=== PATIENT | female | born 1935 | race Caucasian/White ===

== ENCOUNTER 2016-09-15 13:21 | Inpatient (IN) | payer MEDICARE, MEDICAID ==
[~2016-09-15] VITALS: Ht 170.2 cm; Wt 61.2 kg
[2016-09-15 13:13] VITALS: BP 128/68
[~2016-09-15 13:21] MED LIST: ACTOS15 MG ORAL; HYZAAR 50-12.51 EACH ORAL
[2016-09-15 14:02] LABS: BASOPHILS % (AUTO) 0.4 % (0.0-2.0); EOSINOPHILS % (AUTO) 0.1 % (0.0-3.0); LYMPHOCYTES % (AUTO) 7.1 % (20.0-45.0); MEAN CORPUSCULAR HEMOGLOBIN 31.2 PG (27.0-31.0); MEAN CORPUSCULAR HGB CONC 33.7 G/DL (32.0-36.0); MEAN CORPUSCULAR VOLUME 92 FL (80-99); MEAN PLATELET VOLUME 5.1 FL (6.5-10.1); MONOCYTES % (AUTO) 7.9 % (1.0-10.0); NEUTROPHILS % (AUTO) 84.5 % (45.0-75.0); PLATELET COUNT 207 K/UL (150-450); RED BLOOD COUNT 4.33 M/UL (4.20-5.40); RED CELL DISTRIBUTION WIDTH 11.8 % (11.6-14.8); WHITE BLOOD COUNT 12.7 K/UL (4.8-10.8)
--- NOTE | 2016-09-15 14:16 | Emergency Room Report ---
History of Present Illness General Chief Complaint: Syncope Source: EMS (TERRANCE BOYKIN M.D.) Present Illness HPI 81-year-old female presents ED complaining of dizziness. States that she was at lunch today she started to feel dizzy and weak. Nearly passed out. Per EMS BP was low. Patient given IV fluids and BP improved upon arrival. At this time patient states she is feeling somewhat better. Denies any headaches, chest pain or shortness of breath. Denies any fevers or chills. Denies nausea or vomiting. No other aggravating or relieving factors. Denies any other associated symptoms (TERRANCE BOYKIN M.D.) Allergies: Coded Allergies: TETRACYCLINE (Unverified Allergy, Unknown, 09/15/16) Patient History Past Medical History: DM, HTN Past Surgical History: none Pertinent Family History: none Social History: Denies: alcohol use, drug use, smoking Now: No Immunizations: UTD Reviewed Nursing Documentation: PMH: Agreed, PSxH: Agreed (TERRANCE BOYKIN M.D.) Nursing Documentation-PMH Past Medical History: No History, Except For Hx Hypertension: Yes Hx Diabetes: Yes (TERRANCE BOYKIN M.D.) Review of Systems All Other Systems: negative except mentioned in HPI (TERRANCE BOYIKN M.D.) Physical Exam Vital Signs Date Time Temp Pulse Resp B/P Pulse Ox O2 Delivery O2 Flow Rate FiO2 09/15/16 13:03 70 20 128/68 100 Room Air Sp02 EP Interpretation: reviewed, normal General Appearance: no apparent distress, alert, GCS 15, non-toxic Head: normocephalic, atraumatic Eyes: bilateral eye PERRL, bilateral eye normal inspection ENT: hearing grossly normal, normal pharynx, no angioedema, normal voice Neck: full range of motion, supple/symm/no masses Respiratory: chest non-tender, lungs clear, normal breath sounds, speaking full sentences Cardiovascular #1: regular rate, rhythm, no edema Cardiovascular #2: 2+ carotid (R), 2+ carotid (L), 2+ radial (R), 2+ radial (L) , 2+ dorsalis pedis (R), 2+ dorsalis pedis (L) Gastrointestinal: normal bowel sounds, non tender, soft, non-distended, no guarding, no rebound Rectal: deferred Genitourinary: normal inspection, no CVA tenderness Musculoskeletal: back normal, gait/station normal, normal range of motion, non- tender Neurologic: alert, oriented x3, responsive, motor strength/tone normal, sensory intact, speech normal Psychiatric: judgement/insight normal, memory normal, mood/affect normal, no suicidal/homicidal ideation Reflexes: 3+ bicep (R), 3+ bicep (L), 3+ tricep (R), 3+ tricep (L), 3+ knee (R) , 3+ knee (L) Skin: normal color, no rash, warm/dry, well hydrated Lymphatic: no adenopathy (TERRANCE BOYKIN M.D.) Medical Decision Making Medicare Attestation I Ronaldo Oseguera MD hereby attest that the medical record entry for date of service, 07/26/16 accurately reflects signatures/notations that I made in my capacity as MD when I treated/diagnosed the above listed Medicare beneficiary. I attest that this information is true, accurate and complete to the best of my knowledge. I understand that any falsification, omission, or concealment of material fact may subject me to administrative, civil, or criminal liability. This patient warrants hospital admission for extreme of age and has a condition that cannot be treated as outpatient. (RONALDO OSEGUERA M.D.) Diagnostic Impression: Primary Impression: Syncope Qualified Codes: R55 - Syncope and collapse Additional Impression: Pneumonia Qualified Codes: J18.9 - Pneumonia, unspecified organism ER Course Received signout from Dr Boykin at 2pm for this 81 yof with suspected syncope Patient endorses passing out while feeling dizzy at home eating lunch with friend Atraumatic Denies precipitating chest pain, SOB, palpitations History of HTN, ?DM, thyroid CXR with possible LLL PNA Leuks 12k Feels a little "short of breath," breathing thru pursed lips Lungs CTAB on serial exam Will tx empirically for cef/azithro Endorsed to Dr Mariscal at 331pm for tele admission (RONALDO OSEGUERA M.D.) EKG Diagnostic Results Rate: normal Rhythm: NSR ST Segments: no acute changes ASA given to the pt in ED: No (TERRANCE BOYKIN M.D.) Rate: normal, other - arrythmia Rhythm: NSR ST Segments: no acute changes (RONALDO OSEGUERA M.D.) Rhythm Strip Diag. Results EP Interpretation: yes Rhythm: NSR, no PVC's, no ectopy (TERRANCE BOYKIN M.D.) EP Interpretation: yes - 70 Rate: 70 Rhythm: NSR, no PVC's, no ectopy (RONALDO OSEGUERA M.D.) Chest X-Ray Diagnostic Results EP Interpretation: Yes Findings: no consolidation, no effusion, no pneumothorax, no acute cardiopulmonary disease Number of Views: 1 (TERRANCE BOYKIN M.D.) EP Interpretation: Yes Findings: no effusion, no pneumothorax, no acute cardiopulmonary disease, other - possible LLL PNA (RONALDO OSEGUERA M.D.) Last Vital Signs Date Time Temp Pulse Resp B/P Pulse Ox O2 Delivery O2 Flow Rate FiO2 09/15/16 13:13 71 20 128/68 100 Room Air (TERRANCE BOYKIN M.D.) Status: improved (RONALDO SOEGUERA M.D.) Disposition: ADMITTED INPATIENT Condition: Serious Referrals: NOT CHOSEN IPA/,REFERRING (PCP) TRERANCE BOYKIN M.D. Sep 15, 2016 14:16 RONALDO OSEGUERA M.D. Sep 15, 2016 15:32
[2016-09-15 14:19] LABS: ALANINE AMINOTRANSFERASE 10 U/L (3-33); ALBUMIN/GLOBULIN RATIO 1.7 (1.0-2.7); ANION GAP 16 (5-15); ASPARTATE AMINO TRANSFERASE 13 U/L (5-40); CALCIUM 9.1 mg/dL (8.6-10.2); CARBON DIOXIDE 26 mEQ/L (20-30); CHLORIDE 94 mEQ/L (98-107); CREATININE 0.8 mg/dL (0.5-0.9); HEMOLYSIS 11; POTASSIUM 3.8 mEQ/L (3.4-4.9); SODIUM 136 mEQ/L (135-145); TOTAL PROTEIN 6.8 g/dL (6.6-8.7)
[2016-09-15 14:20] LABS: TROPONIN I < 0.30 ng/mL (<=0.30)
[2016-09-15 14:29] LABS: CKMB 1.7 ng/mL (< 3.8)
[2016-09-15] MEDS ORDERED: cefTRIAXone 1 GM in NS 55 ML IV ONE (15:30)
[2016-09-15] MEDS ORDERED: Azithromycin 500 MG in NS 275 ML IV ONE (15:30)
[2016-09-15] MEDS ORDERED: Azithromycin Inj IV ONE (15:38)
[2016-09-15 15:49] VITALS: BP 132/71
--- NOTE | 2016-09-15 16:06 | History and Physical ---
History of Present Illness General Date patient seen: Sep 15, 2016 Time patient seen: 16:05 Reason for Hospitalization: Syncope Present Illness HPI 81 yo F p/w light-headedness and pre-syncope. States that at lunch today she started to feel dizzy and weak. Nearly passed out. Per EMS BP was low. Patient given IV fluids and BP improved upon arrival. At this time patient states she is feeling somewhat better. Denies any headaches, chest pain or shortness of breath. Denies any fevers or chills. Denies nausea or vomiting. No other aggravating or relieving factors. Denies any other associated symptoms Allergies: Coded Allergies: TETRACYCLINE (Unverified Allergy, Unknown, 09/15/16) Medication History Scheduled Losartan/Hydrochlorothiazide 50-12.5 Tablet* (Hyzaar 50-12.5 Tablet*), Unknown Dose ORAL DAILY, (Reported) Pioglitazone Hcl* (Actos*), Unknown Dose ORAL DAILY, (Reported) Patient History Healthcare decision maker Resuscitation status Advanced Directive on File Past Medical/Surgical History Past Medical/Surgical History: (1) Diabetes mellitus type 2 in nonobese (2) HTN (hypertension) Family History Family History: Patient reports no known family medical history. Social History Social History: (1) No significant social history Review of Systems All Other Systems: negative except mentioned in HPI Physical Exam General Appearance: no apparent distress, alert HEENT: normocephalic, atraumatic, anicteric, mucous membranes moist, PERRL, EOMI, pharynx normal, no JVD Neck: non-tender, supple Respiratory/Chest: lungs clear, normal breath sounds, no respiratory distress, no accessory muscle use Cardiovascular/Chest: normal peripheral pulses, normal rate, regular rhythm Abdomen: normal bowel sounds, non tender, soft, no mass Extremities: non-tender, normal inspection Skin Exam: warm/dry Neurologic: manager business information II-XII grossly normal, no motor/sensory deficits, alert Musculoskeletal: normal muscle bulk Last 24 Hour Vital Signs Date Time Temp Pulse Resp B/P Pulse Ox O2 Delivery O2 Flow Rate FiO2 09/15/16 15:49 76 20 132/71 100 Room Air 09/15/16 13:13 71 20 128/68 100 Room Air 09/15/16 13:03 70 20 128/68 100 Room Air Laboratory Tests Test 09/15/16 13:52 White Blood Count 12.7 K/UL (4.8-10.8) H Red Blood Count 4.33 M/UL (4.20-5.40) Hemoglobin 13.5 G/DL (12.0-16.0) Hematocrit 40.0 % (37.0-47.0) Mean Corpuscular Volume 92 FL (80-99) Mean Corpuscular Hemoglobin 31.2 PG (27.0-31.0) H Mean Corpuscular Hemoglobin Concent 33.7 G/DL (32.0-36.0) Red Cell Distribution Width 11.8 % (11.6-14.8) Platelet Count 207 K/UL (150-450) Mean Platelet Volume 5.1 FL (6.5-10.1) L Neutrophils (%) (Auto) 84.5 % (45.0-75.0) H Lymphocytes (%) (Auto) 7.1 % (20.0-45.0) L Monocytes (%) (Auto) 7.9 % (1.0-10.0) Eosinophils (%) (Auto) 0.1 % (0.0-3.0) Basophils (%) (Auto) 0.4 % (0.0-2.0) Sodium Level 136 mEQ/L (135-145) Potassium Level 3.8 mEQ/L (3.4-4.9) Chloride Level 94 mEQ/L (98-107) L Carbon Dioxide Level 26 mEQ/L (20-30) Anion Gap 16 (5-15) H Blood Urea Nitrogen 19 mg/dL (7-23) Creatinine 0.8 mg/dL (0.5-0.9) Estimat Glomerular Filtration Rate mL/min (>60) Glucose Level 127 mg/dL (74-106) H Calcium Level 9.1 mg/dL (8.6-10.2) Total Bilirubin 0.3 mg/dL (0.0-1.2) Aspartate Amino Transf (AST/SGOT) 13 U/L (5-40) Alanine Aminotransferase (ALT/SGPT) 10 U/L (3-33) Alkaline Phosphatase 78 U/L (35-104) Total Creatine Kinase 73 U/L (26-140) Creatine Kinase MB 1.7 ng/mL (< 3.8) Creatine Kinase MB Relative Index 2.3 Troponin I < 0.30 ng/mL (<=0.30) Total Protein 6.8 g/dL (6.6-8.7) Albumin 4.3 g/dL (3.5-5.2) Globulin 2.5 g/dL Albumin/Globulin Ratio 1.7 (1.0-2.7) Height (Feet): 5 Height (Inches): 7.00 Weight (Pounds): 135 Medications Current Medications Medications (Trade) Dose Ordered Sig/Maral Route PRN Reason Start Time Stop Time Status Last Admin Dose Admin Azithromycin/ Sodium Chloride (Zithromax/ Sodium Chloride) 275 ml @ 275 mls/hr ONCE ONCE IV 09/15/16 15:30 09/15/16 16:29 Assessment/Plan Problem List: (1) Syncope ICD Codes: R55 - Syncope and collapse SNOMED: 888637617 Qualifiers: Qualified Codes: R55 - Syncope and collapse (2) Pneumonia ICD Codes: J18.9 - Pneumonia, unspecified organism SNOMED: 138551104 Qualifiers: Qualified Codes: J18.9 - Pneumonia, unspecified organism (3) HTN (hypertension) ICD Codes: I10 - Essential (primary) hypertension SNOMED: 03335441 (4) Diabetes mellitus type 2 in nonobese ICD Codes: E11.9 - Type 2 diabetes mellitus without complications SNOMED: 686675816 Status: progressing Assessment/Plan f/u influenza swab Cef and Azithro for CAP IVF orthostatic vs pt/ot Tylenol prn hold home bp meds hold home diabetic meds SSSI A1C CC Andrew Coker M.D. Sep 15, 2016 16:06
[2016-09-15 16:22] LABS: APPEARANCE,URINE CLEAR; KETONES,URINE NEGATIVE (NEGATIVE); LEUKOCYTE ESTERASE ,URINE 2+ (NEGATIVE); NITRITE,URINE NEGATIVE (NEGATIVE); PH,URINE 7 (4.5-8.0); PROTEIN,URINE 2+ (NEGATIVE); UROBILINOGEN,URINE NORMAL MG/DL (0.0-1.0)
[2016-09-15] MEDS: NovoLOG Insulin Flexpen SUBQ SCH ×2 (16:30→21:00)
[2016-09-15 16:35] LABS: AMORPHOUS SEDIMENT,UR FEW /LPF; BACTERIA,URINE FEW /HPF; SQUAMOUS EPITHELIAL CELL,UR FEW /LPF (NONE/OCC)
[2016-09-15 16:43] VITALS: BP 131/68
[2016-09-15] MEDS ORDERED: cefTRIAXone 1 GM in D5W 55 ML IVPB SCH (18:00)
[2016-09-15 20:00] VITALS: BP 144/63
[2016-09-15] MEDS: Heparin 5000 units/ml inj SUBQ SCH (22:10)
[2016-09-16] VITALS: BP 144/63
[2016-09-16 04:00] VITALS: BP 138/60
[2016-09-16] MEDS: NovoLOG Insulin Flexpen SUBQ SCH ×2 (06:30→11:24)
[2016-09-16 07:58] VITALS: BP 129/65
[2016-09-16 08:27] LABS: BASOPHILS % (AUTO) 0.5 % (0.0-2.0); EOSINOPHILS % (AUTO) 0.2 % (0.0-3.0); MEAN CORPUSCULAR VOLUME 91 FL (80-99); MEAN PLATELET VOLUME 5.4 FL (6.5-10.1); MONOCYTES % (AUTO) 7.8 % (1.0-10.0); NEUTROPHILS % (AUTO) 74.5 % (45.0-75.0); PLATELET COUNT 203 K/UL (150-450); RED BLOOD COUNT 4.06 M/UL (4.20-5.40); RED CELL DISTRIBUTION WIDTH 11.6 % (11.6-14.8)
[2016-09-16 08:42] LABS: ANION GAP 15 (5-15); CARBON DIOXIDE 25 mEQ/L (20-30); CHLORIDE 99 mEQ/L (98-107); CREATININE 0.6 mg/dL (0.5-0.9); HEMOLYSIS 5; POTASSIUM 3.5 mEQ/L (3.4-4.9); SODIUM 139 mEQ/L (135-145)
[2016-09-16] MEDS: Heparin 5000 units/ml inj SUBQ SCH (08:57)
[2016-09-16 11:21] VITALS: BP 128/54
--- NOTE | 2016-09-16 13:52 | Discharge Summary ---
Discharge Summary Hospital Course Date of Admission Sep 15, 2016 at 14:10 Date of Discharge 09/16/16 Admitting Diagnosis syncope HPI Jesika Hu is a 81 year old female who was admitted on Sep 15, 2016 at 14: 10 for pre-Syncope Hospital Course pt admitted to tele obs neg influenza swab s/p Cef and Azithro +IVF +orthostatic pt/ot Tylenol prn hold home bp meds; pt instructed to hold on dc and for bp to be re assessed by pcp. hold home diabetic meds SSSI A1C CC diet Discharge Medications Continued Medications: Pioglitazone Hcl* (Actos*) 15 Mg Tablet Unknown Dose ORAL DAILY, TAB Discharge Condition Upon Discharge: stable Discharge Disposition Patient was discharged to Home with Home Health(06) Discharge Diagnoses: (1) Orthostatic hypotension (2) HTN (hypertension) (3) Diabetes mellitus type 2 in nonobese Andrew Vegas M.D. Sep 16, 2016 13:52
[2016-09-16] MEDS ORDERED: Tubing IV Secondary IV ONE (14:52)
[2016-09-16] MEDS ORDERED: cefTRIAXone 1 GM in D5W 55 ML IVPB SCH (15:00)
[2016-09-16] MEDS ORDERED: Azithromycin 500 MG in D5W 275 ML IV SCH (16:00)
--- NOTE | 2016-09-17 10:15 | Diagnostic Imaging Report ---
Indication: Chest pain Technique: One view of the chest Comparison: none Findings: Suboptimal inspiration. There is some crowding of vascular markings, but the lungs and pleural spaces are otherwise clear. The heart size is upper limits of normal. Impression: No acute process
--- NOTE | 2016-09-24 12:52 | Cardiology Report ---
APPROVED REPORT EKG Measurement Heart [id number] Normal sinus rhythm with sinus arrhythmia Normal ECG
== END 2016-09-16 14:53 | disposition home or self-care (01) | DRG 312 ==
LOC: ENRESERV → ENRESERVTM → ENRESERVDT → EDBD 13:21 → EMR 14:02 → 2E 14:10 → EDBEDREQ 14:52
DX: I95.1 Orthostatic hypotension (principal); E11.9 Type 2 diabetes mellitus without complications; I10 Essential (primary) hypertension
CPT/HCPCS: 36415; 71010; 80048; 80053; 81003; 82550; 82553; 82962; 84484; 85025; 86710; 93005; J1815